=== PATIENT | female | born 1945 | race Caucasian/White ===

== ENCOUNTER → 2019-06-23 09:33 | Outpatient (CLI) | payer MEDICARE, OTHER, SELFPAY ==
[2019-06-23 10:32] LABS: Add Manual Diff / Slide Review NO; Basophils Absolute Auto 0 /uL (0-100); Basophils Percent Auto 0.5 % (0-2); Eosinophils Absolute Auto 500 /uL (0-450); Eosinophils Percent Auto 5.7 % (2-4); Hematocrit 43.1 % (36-46); Hemoglobin 14.7 g/dL (12.0-16.0); Lymphocytes Absolute Auto 2500 /uL (1100-4500); Mean Corpuscular Hemoglobin 31.9 PG (26-34); Mean Corpuscular Volume 93.6 fL (80-100); Monocytes Absolute Auto 600 /uL (0-900); Monocytes Percent Auto 7.1 % (3-14); Neutrophils Absolute Auto 5500 /uL (1500-7000); Neutrophils Percent Auto 59.7 % (50-75); Platelet Count 229 X10^3/uL (150-400); Red Cell Distribution Width 12.5 % (11.6-14.8); White Blood Cell Count 9.2 X10^3/uL (4.5-11.0)
[2019-06-23 10:56] LABS: Carbon Dioxide 25 mmol/L (22-32); Chloride 103 mmol/L (98-107); HEMOLYSIS < 15 (0-50); Sodium 141 mmol/L (137-145)
== END ==
PROVIDERS: PCP Physician Assistant; Visit Provider Orthopaedic Surgery
DX: M17.0 Bilateral primary osteoarthritis of knee (principal); Z01.812 Encounter for preprocedural laboratory examination; Z01.818 Encounter for other preprocedural examination
CPT/HCPCS: 36415; 80051; 85025; 93005

== ENCOUNTER 2019-07-11 10:40 | Observation (INO) | payer MEDICARE, OTHER, SELFPAY ==
[2019-06-29 09:54] VITALS: BMI 26.9
[2019-07-10] VITALS (16 sets, daily range): BP systolic 82–140; BP diastolic 38–75; PULSE 56–82; RESP 11–16; TEMP 35.7–37.1; O2SAT 90–98; BMI 26.9
--- NOTE | 2019-07-10 06:00 | DI.RAD.S_ITS ---
PROCEDURE: XR KNEE RT 1TO2V INDICATIONS: post op films TECHNIQUE: 2 views of the knee were acquired. COMPARISON: [facility] Ethelbobbi Garibay, ALINA, XR KNEE ARTHRITIC SERIES BI, 06/04/2019, 10:02. FINDINGS: Bones: No fractures or dislocations. No suspicious bony lesions. Status post right knee arthroplasty. Hardware components are in expected location. Soft tissues: No joint effusion. No suspicious soft tissue calcifications. IMPRESSION: Expected appearance following the arthroplasty. Dictated by: Ravi Mcnally M.D. on 07/10/2019 at 9:59 Approved by: Ravi Mcnally M.D. on 07/10/2019 at 9:59
[2019-07-10] MEDS: LACTATED RINGERS 1,000 ML 42 ML IV ×2 (07:02→08:40)
[2019-07-10] MEDS: CELECOXIB 200 MG CAPSULE PO (07:06)
[2019-07-10] MEDS: PREGABALIN 75 MG CAPSULE PO (07:06)
[2019-07-10] MEDS: ACETAMINOPHEN 325 MG TABLET 975 MG PO ×3 (07:06→21:24)
--- NOTE | 2019-07-10 07:30 | PM.PREOP ---
Pre-operative Note Interval Note History & Physical reviewed/Exam performed by Physician: Yes Changes to H&P: No
--- NOTE | 2019-07-10 07:30 | PM.OP.1 ---
Operative Date/Time/Diagnoses Date of procedure: 07/10/19 Time of procedure: 09:28 Pre-op diagnosis: Right knee osteoarthritis Post-op diagnosis: same Procedure & Clinicians Procedure: Right total knee arthroplasty Same procedure as scheduled: Yes Indications: The patient presents today for total knee arthroplasty after failure of conservative treatment. The nature of the procedure including the risks and benefits, alternatives, postoperative course and expected outcome were discussed and all questions answered. Consent was obtained. Operative site confirmed and marked. Surgeon: Anup Segovia [employer] Consultant: Jamir Berrios Anesthesia Type: General, Spinal and Local Operative Notes Findings: Severe osteoarthritis with varus alignment. Closure Type: primary Specimen(s): none sent Prosthetic devices, grafts, tissues, transplants, or devices: [employer] BCS: 5 femoral component, 3 tibial component, 9 mm BCS polyethylene tray and 32 x 7.5 mm round patella Applied: implant(s) Estimated Blood Loss (mL): 15 Blood products transfused: none Tourniquet time (min): 56 Procedure in detail: The patient was taken to the operative suite and placed under general and spinal anesthesia. The patient was given prophylactic antibiotics prior to surgery. The patient was also given tranexamic acid, 1 g, just prior to surgery for postoperative hemostasis. The lateral knee was prepped and the joint injected with 20 mL of 1% Lidocaine with epinephrine. The knee was then prepped and draped in usual sterile fashion. The leg was exsanguinated with an Esmarch dressing and the tourniquet raised to 250 torr. A 15 cm anterior incision was made. Next a medial trivector arthrotomy was made. The extensor mechanism was marked to ensure accurate repair. Initial exposing dissection was carried out medially and laterally. The knee was then extended and the patellar thickness was measured and a cut made removing approximately 7-8 mm of bone. The patella was then sized and drilled. Some excess lateral bone was excised and the patellofemoral ligament released. The knee was then flexed and the intramedullary femoral guide enrique placed. The distal femoral cut was made in 6 ? of valgus at the + +2 position. The femoral size was measured and the appropriate cutting block was then placed and the anterior, posterior and chamfer cuts made. The extra medullary tibial alignment enrique was then placed along the anatomic axis of the tibia approximating the normal slope. The guide was set to remove approximately 10 mm from the less affected lateral side. The proximal tibial cut was then made with an oscillating saw. All meniscus and bony debris was then removed. Flexion extension gaps were checked. The knee was still tight medially both in flexion and extension. This was corrected with routine osteophyte and soft tissue releases as well as percutaneous release of the MCL with an 18 gauge needle. The soft tissues were then injected with a combination of 20 mL of half percent Marcaine with epinephrine and 20 mL of Exparel. The trial components were then placed. The knee went into full extension and flexion beyond 120?. There was excellent medial- lateral balance throughout motion. Patellar tracking was excellent. The trial components were removed and the knee was cleansed with Pulsavac irrigation and dried. The final components were cemented in with high viscosity vacuum mixed bone cement with antibiotics. The knee was held in extension and the patellar clamp until the cement had adequately cured. The knee was irrigated and inspected for any further debris. The knee was then irrigated with dilute Betadine solution. The extensor mechanism was closed with 5 interrupted #1 Vicryl sutures in 90 degrees of flexion. The joint was then injected with a combination of 1 g of tranexamic acid and 20 mL of quarter percent Marcaine with epinephrine. The subcutaneous tissue was closed with 2-0 Vicryl. The skin was closed with neno and surgical adhesive. An Aquacell dressing and Cyrus wrap were then applied. The patient tolerated the procedure well and was returned to recovery room in good condition. Post-operative Plan for aftercare: [facility] protocol for total knee arthroplasty.
[2019-07-10] MEDS: CEFAZOLIN 2 GM/100 ML FROZ.PIGGY IV ×2 (07:47→16:17)
[2019-07-10] MEDS: LIDOCAINE 1% W/EPI 20 ML INJ (08:05)
[2019-07-10] MEDS: TRANEXAMIC ACID 1,000 MG VIAL 1000 MG INJ (08:11)
--- NOTE | 2019-07-10 08:24 | SUR.OPER ---
Supine on padded OR bed. Pillow under head, arms secured on padded armboards <90 degree abduction. Safety belt across torso. Non-operative leg secured with tape over blanket over lower leg. Operative leg secured in Marquis positioner. Foam padded brace at thigh of operative leg.
[2019-07-10] MEDS: BUPIVACAINE 0.25% W/ EPI (PF) 40 ML, BUPIVACAINE LIPOSOME 266 MG, SODIUM CHLORIDE 0.9% ... INJ (08:30)
[2019-07-10] MEDS: BUPIVACAINE 0.25% W/ EPI (PF) 20 ML, TRANEXAMIC ACID 1,000 MG, SODIUM CHLORIDE 0.9% 10 ML INJ (08:31)
[2019-07-10] MEDS: SODIUM CHLORIDE IRRIG SOLUTION 250 ML, POVIDONE-IODINE SPONGE STICKS 1 APPLIC IRR (08:33)
--- NOTE | 2019-07-10 13:32 | PC.NURSE ---
Pt admitted to the floor at 1025. She has a aquacel dressing to her r.knee with acewrap intact. States that she has feeling down to the top of her knee. Her feet are starting to tingle as the spinal is possibly wearing off. is at bedside and very supportive in patients care. She denies pain and has LR art 125cc/hr running.
[2019-07-10] MEDS: LACTATED RINGERS 1,000 ML 125 ML IV ×2 (13:36→21:27)
--- NOTE | 2019-07-10 17:33 | PT.IIE ---
Current Diagnoses Bilateral primary osteoarthritis of knee (07/10/19) Impingement syndrome of left shoulder (07/10/19) Surgery Performed Operation Date: 07/10/19 07:45 Actual Procedures p Total Knee Arthroplasty(Right) - Anup Segovia MD Surgical History (Last Updated 06/29/19 @ 10:17 by Ale Ruvalcaba, RN) Hx of tubal ligation (Acute) Medical History (Last Updated 06/29/19 @ 10:19 by Ale Ruvalcaba RN) Diabetes (Acute) HLD (hyperlipidemia) (Acute) HTN (hypertension) (Acute) Hypothyroidism (Acute) Stress (Acute ~07/2014) Physical Therapy Inpatient Evaluation/Re-Eval M1 PT/OT-IP Prior Functional Status Start: 07/10/19 16:44 Freq: NEEDED Status: Active Protocol: Document 07/10/19 16:45 HH (Rec: 07/10/19 17:33 HH [email or web address]) Medical Review Prior Functional Status Medical History Reviewed Yes Diet/Fluid Consistency Regular Communication Able to make needs known and no deficited noted Mobility and Gait Pt was independent for home and community mobility without using AD. Activities of Daily Living and IADL's Independent for ADLs and IADLs . She was her CG for many years since he had cancer and multiple joint replacements. Social History Household Members spouse Living Arrangements House Number of Floors (Floors) Two Floors Number of Stairs To Enter/Railing? Has ramp to enter Home Environment High Toilet,Walk in Shower, Ramp Home Equipment Front Wheel Walker,Straight Cane,Raised Toilet Seat w/ Armrests,Shower Seat with Backrest,Hand Held Shower,Long Handled Shoe Horn,Outreach Counselor Employment Status Retired Additional Social History Comment Pt lives with her who was his CG for the past 5 years due to his cancer and multiple joint replacements. He is now very independent and active and will be able to assist pt as needed. Pt's children both live out of state but she stated she will have helpful neighbor to assist if needed. Pt primarily lives on 2nd floor but will be able to stay on mainfloor in the guest room. M2 PT-IP Current Condition Start: 07/10/19 16:44 Freq: NEEDED Status: Active Protocol: Document 07/10/19 16:45 HH (Rec: 07/10/19 17:33 HH [email or web address]) Physical Therapy Current Condition Current Condition Evaluation Date 07/10/19 Treatment Diagnosis R TKA, difficulty in walking Onset Date 07/10/19 Weight Bearing Status Weight Bearing Status Weight Bear as Tolerated M3 PT-IP Subjective Start: 07/10/19 16:44 Freq: NEEDED Status: Active Protocol: Document 07/10/19 16:45 HH (Rec: 07/10/19 17:33 [email or web address]) Subjective Physical Therapy Visit Type Type Initial Evaluation Visit Start Time 16:45 Visit Stop Time 17:15 Total Visit Minutes 30 Notes Pt's attended session Number of MEDICAL TRANSCRIPTION SUPERVISOR Visits 0 Physical Therapy Visit Comments Patient Comments I only have 2/10 pain. Patient Goals To return home with . Therapy Pain Assessment Pain When Pain Assessed During Mobility Pain Present Pain Present Pain Reported Location R knee Intensity 2 Scale Used Numeric (1 - 10) Description Acute Pain Management Techniques Apply Cold,Modification of Treatment,Timing of Activity with Medications M4 PT-IP Mobility and Gait Start: 07/10/19 16:44 Freq: NEEDED Status: Active Protocol: Document 07/10/19 16:45 HH (Rec: 07/10/19 17:33 [email or web address]) PT-Bed Mobility Assessment Rolling Type of Rolling Roll to Left Level of Assist Standby Assistance Supine to Sit Supine to Sit Standby Assistance Scooting Scooting to Edge of Bed Standby Assistance PT-Transfer Assessment Sit to and From Stand Sit to and from Stand Standby Assistance Equipment Transfer Assistive Device Gait Belt,Front Wheeled Walker Orthotic/Prosthetic Devices or Brace: No Transfers Transfer Destination Bed,Chair,Toilet Transfer Technique Stand Step Pivot Transfer Ability Level of Assist Standby Assistance,Use of Upper Extremities Comments Mobility Comments Pt awake in bed upon assessment. Pt had preop PT and she used her L LE to lift RLE for pivoting to L side EOB . Pt then stood up with FWW but primarily WB through LLE. She then performed standing weight shift laterally without discomfort. She was able to transfer herself to toilet with the use of grab on L side and safely descend without stagger stance. She then amb from bathroom to hallway. She mostly used step to pattern but able to WB 70-80% on RLE without any buckling episodes. Pt then transferred back to bedside chair with safe techniques and hand placements . Pt appears very steady and safe during session. Gait Assessment Gait Gait Assistance Required: Standby Assistance Distance (Feet) 90 Able to Maintain Weight Bearing Status Yes During Gait Assistive Devices Assistive Device Gait Belt,Front Wheeled Walker Orthotic/Prosthetic Devices or Brace: No Gait Deviations General Gait Pattern Antalgic,Decreased Stride Length,Decreased Feet Clearance,Step-to Gait Factors Limiting Gait Function Factors Limiting Gait Function Decreased Activity Tolerance, Decreased Strength,Limited Range of Motion,Pain,Poor Balance Comments Gait Comments see mobility comments PT-Balance Assessment Sitting Balance and Reactions Static Sitting Balance Ability Normal Dynamic Sitting Balance Ability Normal Standing Balance and Reactions Static Standing Balance Ability Normal Dynamic Standing Balance Ability Normal Device Used FWW M5 PT-IP Objective Assessments Start: 07/10/19 16:44 Freq: NEEDED Status: Active Protocol: Document 07/10/19 16:45 (Rec: 07/10/19 17:33 [email or web address]) Orientation Orientation/Cognition Level of Alertness Alert Orientation Name,Age,Birthday,Month,Date, Year,Day of Week,Place, Situation Language Function Ability No Deficits Noted Safety Awareness Understands Safety Issues Memory Description No Deficits Noted Gross Range of Motion Upper Extremity ROM Assessment Within Functional Limits Lower Extremity ROM Assessment Right Impaired Impairments R knee AROM= 3- 110 degrees. Strength Upper Extremity Strength Assessment Within Functional Limits Lower Extremity Strength Assessment Right Impaired Knee 3+/5 Coordination Assessment Gross Coordination Gross Coordination WNL Sensation Assessment Sensation Gross Sensation WNL Light Touch Intact Proprioception (Position) Intact Muscle Tone Muscle Tone WNL Yes M6 PT-IP Treatment Start: 07/10/19 16:44 Freq: NEEDED Status: Active Protocol: Document 07/10/19 16:45 HH (Rec: 07/10/19 17:33 [email or web address]) Physical Therapy Treatment Exercises Exercises Ankle Pumps,Gluteal Sets,Quad Sets,Heel Slides Education Education Provided Precautions,Weight Bearing Status,Post-Op Packet,Safety M7 PT-IP Assessment and Plan Start: 07/10/19 16:44 Freq: NEEDED Status: Active Protocol: Document 07/10/19 16:45 (Rec: 07/10/19 17:33 [email or web address]) PT Summary Assessment and Plan Potential Rehabilitation Potential Excellent Status of Condition at Evaluation Stable Summary Impairments Pain,ROM,Strength,Bed Mobility ,Transfers,Gait,Activity Tolerance Assessment Summary Pt is a low complexity who is post op R TKA today. Upon assessment, pt has a very good understanding of her current condition and safety awareness who had taken care of her with multiple joint replacements. She was able transfer, amb with FWW SBA during session and appears very steady and safe. Pt also lives in a house with adequate DMEs. Expect pt to be d/c home with 's assistance and outpatient PT to improve her mobility and strength. Goals Bed Mobility Goal Independent Transfer Goal Independent,Front Wheeled Walker Gait Goal Independent,Front Wheel Walker Gait Distance 200 Other Goals Stair climbing as magi ( optional) pt has a ramp to enter Days to Meet Goals 3 Frequency of Treatment Frequency Of Treatment Twice a Day Treatment Plan Physical Therapy Treatment Plan Bed Mobility Training,Transfer Training,Gait Training, Therapeutic Exercise,Balance Retraining,Post Op Education, Discharge Planning,Hot or Cold Pack,Neuromuscular Re-ed Other Recommendations and Next Treatment bed mob, transfers and gait Focus training as magi stair climbing as magi ( optional) Recommendations To Nursing Amount of Assist Needed Standby Assistance Discharge Recommendations PT Discharge Recommendations Home with Assistance, Outpatient PT
[2019-07-10] MEDS: LOVASTATIN 20 MG TABLET PO (18:06)
[2019-07-10] MEDS: METFORMIN HCL 500 MG TABLET PO (21:23)
[2019-07-10] MEDS: ASPIRIN EC 81 MG TABLET PO (21:23)
[2019-07-11] VITALS: BP 123/66; PULSE 59; RESP 16; TEMP 36.4; O2SAT 95
[2019-07-11] MEDS: CEFAZOLIN 2 GM/100 ML FROZ.PIGGY IV (00:19)
[2019-07-11 04:00] VITALS: BP 151/56; PULSE 66; RESP 16; TEMP 36.3; O2SAT 97
[2019-07-11 05:50] LABS: Hematocrit 39.7 % (36-46)
[2019-07-11] MEDS: LEVOTHYROXINE 25 MCG TABLET PO (06:03)
[2019-07-11 08:02] VITALS: BP 123/67; PULSE 71; RESP 16; TEMP 36.2; O2SAT 95
[2019-07-11] MEDS: METFORMIN HCL 500 MG TABLET PO (08:58)
[2019-07-11] MEDS: ASPIRIN EC 81 MG TABLET PO (08:58)
[2019-07-11] MEDS: AMLODIPINE 5 MG TABLET PO (08:58)
[2019-07-11] MEDS: ACETAMINOPHEN 325 MG TABLET 975 MG PO (08:59)
--- NOTE | 2019-07-11 09:52 | PM.DS.1 ---
History of Present Illness History of Present Illness Date Patient Seen: 07/11/19 Time Patient Seen: 09:52 Chief complaint: [id number] Narrative: Patient's pain is mild. Denies fever chills. No nausea vomiting. Patient has her home to assist her. They have a ramp into her house. She does wish to go home today if safe to do so. She is otherwise without complaints. Discharge Providers Provider Date of admission: 07/10/19 05:25 Discharge Date: 07/11/19 Primary care physician: Tamie Chin PA-C Consults: 07/10/19 11:49 Consult to Discharge Planning Routine Comment: Consult to Physical Therapy Evaluate & Treat Comment: Physician Instructions: postop TKA protocol Consult to Respiratory Therapy Evaluate & Treat Comment: Physician Instructions: Evaluate and treat Discharge provider: Jamir Berrios PA-C Summary Hospital Course Discharge Diagnosis: Status post right total knee arthroplasty secondary to severe right knee osteoarthritis Hospital Course: [address] [address] Operative Note Patient: Beatris Yoon R#: [id number] : 3Acct:[id number] Age/Sex: 74 / F Date of Service: 07/10/19 Provider: Anup Segovia MD Operative Date/Time/Diagnoses Date of procedure: 07/10/19 Time of procedure: 09:28 Pre-op diagnosis: Right knee osteoarthritis Post-op diagnosis: same Procedure & Clinicians Procedure: Right total knee arthroplasty Same procedure as scheduled: Yes Indications: The patient presents today for total knee arthroplasty after failure of conservative treatment. The nature of the procedure including the risks and benefits, alternatives, postoperative course and expected outcome were discussed and all questions answered. Consent was obtained. Operative site confirmed and marked. Surgeon: Anup Segovia Welcome Wagon Host/Hostess: Jamir Berrios Anesthesia Type: General, Spinal and Local Operative Notes Findings: Severe osteoarthritis with varus alignment. Closure Type: primary Specimen(s): none sent Prosthetic devices, grafts, tissues, transplants, or devices: [employer] BCS: 5 femoral component, 3 tibial component, 9 mm BCS polyethylene tray and 32 x 7.5 mm round patella Applied: implant(s) Estimated Blood Loss (mL): 15 Blood products transfused: none Tourniquet time (min): 56 Patient admitted to the hospital for right total knee arthroplasty. Patient taken to the operating room underwent right total knee arthroplasty. Patient back in her room recovering well as in stable condition. Patient will work with physical therapy prior to discharge home today. Status at Discharge Cognitive/behavioral status at discharge: at baseline, oriented Functional status at discharge: uses cane/walker Overall status at discharge: patient is progressing back to baseline Time Spent with Patient Time spent: Less than 30 minutes Exam Vital Signs (past 8 hours): - 07/11/19 04:00 07/11/19 08:02 Temperature 97.4 F L 97.1 F L Pulse Rate 66 71 Respiratory Rate 16 16 Blood Pressure 151/56 H 123/67 Pulse Oximetry 97 95 Oxygen Delivery Method Room Air Oxygen Flow Rate 0 Narrative Exam Narrative: Pleasant 74-year-old female resting comfortably in bedside chair in no apparent distress. Right knee dressing is clean, dry and intact. Sensation grossly intact to light touch right lower extremity. Motor functions intact. Right leg is warm and dry. Objective Labs Result Diagrams: 07/11/19 05:34 Labs: Laboratory Results - last 24 hr 07/11/19 05:34 Hgb 13.0 Hct 39.7 Discharge Plan Discharge Plan Patient Disposition: Home Discharge comment: DC today after PT Discharge Med Rec/Prescriptions Prescriptions: New aspirin 81 mg Tablet,Delayed Release (Dr/Ec) 81 mg PO BID Qty: 60 RF: 0 ibuprofen 400 mg Tablet 400 mg PO Q4HR PRN (Reason: Pain, Mild (1-3)) Qty: 60 RF: 0 Continued lisinopril 20 mg Tablet 20 mg PO QPM RF: 0 amlodipine 5 mg Tablet 5 mg PO DAILY RF: 0 ferrous sulfate [iron] 325 mg (65 mg iron) Tablet 325 mg PO DAILY RF: 0 metformin 1,000 mg Tablet 500 mg PO BID RF: 0 lovastatin 20 mg Tablet 20 mg PO QPM RF: 0 levothyroxine 25 mcg Capsule 25 mcg PO DAILY RF: 0 Multi-Day with Iron 18-400 mg-mcg Tablet 1 tab PO DAILY RF: 0 Discontinued aspirin 81 mg Tablet,Delayed Release (Dr/Ec) 81 mg PO QPM RF: 0 meloxicam 7.5 mg Tablet 7.5 mg PO BID RF: 0 Follow up/Referrals: Anup Segovia MD [Physician] - (1 wk) Tamie Chin PA-C [Primary Care Provider] - Provider Discharge Instructions Diet: Diet as Tolerated Activity: per zay Cold/Heat Therapy: ice as needed Other treatments: Ibuprofen 400 mg every 4 hours., Tylenol 500 mg every 4 hours, aspirin 81 mg b.i.d.., oxycodone as prescribed. Skin/Wound/Dressing Care Report to your healthcare provider any signs of infection, such as:: chills, fever, increased pain, unusual drainage and unusual redness Dressing: keep clean and dry Discharge Data Primary Care Provider: Tamie Chin VTE Deep Vein Thrombosis/Pulmonary Embolism Present on Admission: No
--- NOTE | 2019-07-11 10:45 | PT.IPTN ---
Current Diagnoses Bilateral primary osteoarthritis of knee (07/10/19) Impingement syndrome of left shoulder (07/10/19) Surgery Performed Operation Date: 07/10/19 07:45 Actual Procedures p Total Knee Arthroplasty(Right) - Anup Segovia MD Physical Therapy Treatment Note M2 PT-IP Current Condition Start: 07/10/19 16:44 Freq: NEEDED Status: Active Protocol: Document 07/10/19 16:45 HH (Rec: 07/10/19 17:33 HH [email or web address]) Physical Therapy Current Condition Current Condition Evaluation Date 07/10/19 Treatment Diagnosis R TKA, difficulty in walking Onset Date 07/10/19 Weight Bearing Status Weight Bearing Status Weight Bear as Tolerated M3 PT-IP Subjective Start: 07/10/19 16:44 Freq: NEEDED Status: Active Protocol: Document 07/11/19 10:45 GGD (Rec: 07/11/19 12:48 GGD [id number]) Subjective Physical Therapy Visit Type Type Treatment Note Visit Start Time 10:15 Visit Stop Time 11:43 Total Visit Minutes 23 Number of BOBBIN DISKER Visits 1 Physical Therapy Visit Comments Patient Comments Pt state she feels ready to go home. Therapy Pain Assessment Pain When Pain Assessed During Mobility Pain Present Pain Present Pain Reported Location R knee Intensity 2 Scale Used Numeric (1 - 10) M4 PT-IP Mobility and Gait Start: 07/10/19 16:44 Freq: NEEDED Status: Active Protocol: Document 07/11/19 10:45 GGD (Rec: 07/11/19 12:48 GGD [id number]) PT-Bed Mobility Assessment Rolling Type of Rolling Roll to Left Level of Assist Standby Assistance Supine to Sit Supine to Sit Standby Assistance Sit to Supine Sit to Supine Standby Assistance Scooting Scooting to Edge of Bed Standby Assistance PT-Transfer Assessment Sit to and From Stand Sit to and from Stand Standby Assistance Equipment Transfer Assistive Device Gait Belt,Front Wheeled Walker Orthotic/Prosthetic Devices or Brace: No Transfers Transfer Destination Bed Transfer Ability Level of Assist Standby Assistance,Use of Upper Extremities Gait Assessment Gait Gait Assistance Required: Standby Assistance Distance (Feet) 150 Able to Maintain Weight Bearing Status Yes During Gait Assistive Devices Assistive Device Gait Belt,Front Wheeled Walker Orthotic/Prosthetic Devices or Brace: No Gait Deviations General Gait Pattern Antalgic,Decreased Stride Length,Decreased Feet Clearance,Step-to Gait Factors Limiting Gait Function Factors Limiting Gait Function Decreased Activity Tolerance, Decreased Strength,Limited Range of Motion,Pain,Poor Balance M5 PT-IP Objective Assessments Start: 07/10/19 16:44 Freq: NEEDED Status: Active Protocol: Document 07/10/19 16:45 HH (Rec: 07/10/19 17:33 HH [email or web address]) Orientation Orientation/Cognition Level of Alertness Alert Orientation Name,Age,Birthday,Month,Date, Year,Day of Week,Place, Situation Language Function Ability No Deficits Noted Safety Awareness Understands Safety Issues Memory Description No Deficits Noted Gross Range of Motion Upper Extremity ROM Assessment Within Functional Limits Lower Extremity ROM Assessment Right Impaired Impairments R knee AROM= 3- 110 degrees. Strength Upper Extremity Strength Assessment Within Functional Limits Lower Extremity Strength Assessment Right Impaired Knee 3+/5 Coordination Assessment Gross Coordination Gross Coordination WNL Sensation Assessment Sensation Gross Sensation WNL Light Touch Intact Proprioception (Position) Intact Muscle Tone Muscle Tone WNL Yes M6 PT-IP Treatment Start: 07/10/19 16:44 Freq: NEEDED Status: Active Protocol: Document 07/11/19 10:45 GGD (Rec: 07/11/19 12:48 GGD [id number]) Physical Therapy Treatment Exercises Exercises Ankle Pumps,Gluteal Sets,Quad Sets,Heel Slides,Short Arc Quads,Seated Knee Flexion/ Extension Education Education Provided Precautions,Safety M7 PT-IP Assessment and Plan Start: 07/10/19 16:44 Freq: NEEDED Status: Active Protocol: Document 07/11/19 10:45 GGD (Rec: 07/11/19 12:48 GGD [id number]) PT Summary Assessment and Plan Summary Assessment Summary Pt improving with mobility. She was able to progress gait distance. Pt safe for home D/C when medically stable. Frequency of Treatment Frequency Of Treatment Twice a Day Treatment Plan Physical Therapy Treatment Plan Bed Mobility Training,Transfer Training,Gait Training, Therapeutic Exercise,Balance Retraining,Post Op Education, Discharge Planning,Hot or Cold Pack,Neuromuscular Re-ed Recommendations To Nursing Amount of Assist Needed Standby Assistance Discharge Recommendations PT Discharge Recommendations Home with Assistance, Outpatient PT
[2019-07-11 11:24] VITALS: BP 121/58; PULSE 72; RESP 18; TEMP 36.7; O2SAT 96
--- NOTE | 2019-07-11 14:57 | CM.DANOTE ---
DCP/Assessment: Reviewed chart. Patient is a 74yr old female admitted to [facility] for elective right TKA performed on 07-10-[address] Segovia. PCP listed is Tamie Chin. Primary payor is 1)Medicare 2)Commercial Insurance. Attempted to meet with patient this afternoon. Patient had already discharged from [facility] Patient seen by Ortho team and therapy. Both report patient medically cleared and physically cleared for discharge home. Patient has FWW for ambulation and plans to do outpatient therapy. RN reports no d/c needs identified. P: Home today. NANETTE Tucker Discharge Planning/Care Management CM Discharge Assessment Start: 07/11/19 14:54 Freq: Status: Active Protocol: Document 07/11/19 14:54 KJS (Rec: 07/11/19 14:57 KJS [id number]) Discharge Planning Assessment Assigned Sql Ssrs Developer NANETTE Tucker Contact Information Herb Yoon (spouse) [phone] Advance Directives? Yes Advance Directives on File Yes History Provided By Medical Record Has Patient been admitted in last 30 No days? Prior Living Arrangements House Household Members spouse Independent with ADL's Yes Is patient alert and oriented? Yes Caregiver for Another No DME Already Rented / Owned FWW / Walker Patient/Family Preference OP PT Therapy Barriers to Discharge No Discharge Plan Home Transportation Arrangement Family to provide transport. Referrals Initiated None needed Review Status In Process Next Review Type Continued Stay Review Pre-Anesthesia Assessment Start: 06/29/19 09:54 Freq: Status: Discharge Protocol: Document 06/29/19 09:54 CAB (Rec: 06/29/19 10:37 CAB [id number]) Pre-Anesthesia Assessment Patient Information Reviewed Via Phone Assessment Assessment Completed With Patient Diagnostic Results CBC,EKG,Electrolytes Comment Labs/EKG @ 06/23/19 Primary Care Provider Tamie Chin Seen Specialist in Last 12 Months Yes Specialist Seen Orthopedist Primary Language [place] Vascular Surgeon Required No Height 162.56 cm Weight 71.214 kg Body Mass Index (BMI) 26.9 Hearing Ability Normal Visual Assist Glasses Dentition Type Teeth, Natural Present Barriers to Learning None Other Aids No Hx Anesthesia Reactions No Hx Family Anesthesia Reaction No Hx Malignant Hyperthermia No Hx Blood Transfusions No Anesthesia Review Requested No alcohol intake former Smoking Status Never smoker Substance Use Type does not use Pain Present Pain Reported Musculoskeletal Symptoms Abnormal Gait,Difficulty Walking,Joint Pain History of Falling (Recent or History of No ) Patient is completely paralyzed or No completely immobile Mental Status Oriented to own ability Is patient on oxygen? No Does patient have MORALES/SOB No Hx Sleep Apnea No Currently Taking a Beta Arin No Can You Climb a Flight of Stairs Without Yes SOB Hx Chest Pain No Hx SOB No Hx Syncope or Dizziness No Anti-Coagulant Therapy No Has a In Store Marketer No Cardiac Testing No Hx Pacemaker/ICD No Pacemaker Rep Required? No Cardiac Clearance Received Not Applicable Diet Type At Home Regular dysphagia No Bladder Pattern Nocturia Urinary Catheter Present No Hx Urinary Self Catheterization No Diabetes Yes Patient No Lactating No Hx Drug Resistant Organism No Presence of External or Internal Medical No Devices Have you traveled outside the [facility] in the last 30 days? Marital Status Lives With spouse Prior Living Arrangements House Number of Floors (Floors) Two Floors Support System Friend(s),Spouse Does the Patient Have Assistance After Yes Surgery Patient Discharge Plan Description Return Home Comment Pt not advised on length of stay per surgeon Feels Safe in Current Environment Yes Been Physically Hurt or Threatened By a No Person in Current Environment Do you have thoughts of harming yourself None or others? Are you currently considering suicide? No Do you have a plan to hurt yourself or No Plan others? Do You Have Any Spiritual Beliefs That No May Affect Your HC Choices? Do You Have Any Cultural Practices That No May Affect Your HC Choices? Who Can We Speak to About Patient's Care Family, friends Identifying Code for Release of Patient Declines to issue Information Health Care Proxy/Next of Kin Herb () Health Care Proxy Emergency Contact Name Justo (son) Nico (son) Emergency Contact Phone Number Justo: [phone] Nico: [phone] Advance Directives? Yes Advance Directives on File No Requested Patient Bring Advanced Yes Directives DOS Power of Landscape Gardener Yes Power of Landscape Gardener Name Herb () PAC Instructions Do not shave/clip surgical site,Durable medical equipment ,Medications to take/avoid, Nasal antibiotic,No ETOH/ petroleum product on skin DOS, NPO,Post-op transportation,Pre -surgical wash,Sensory aids, Sturdy shoes/comfortable clothes,Do not bring valuables and remove jewelry
== END 2019-07-11 13:20 | disposition home or self-care (01) ==
LOC: AC 12:16 → OR 14:28 → AC 14:29 → OR 14:30
PROVIDERS: Admitting Provider Orthopaedic Surgery; PCP Physician Assistant; Visit Provider Orthopaedic Surgery
PROC: 0SRC0JZ Replacement of Right Knee Joint with Synthetic Substitute, Open Approach (ICD-10-PCS; CPT 27447; principal; 2019-07-10 07:45)
DX: M17.11 Unilateral primary osteoarthritis, right knee (principal); I10 Essential (primary) hypertension; E11.9 Type 2 diabetes mellitus without complications; Z79.84 Long term (current) use of oral hypoglycemic drugs
CPT/HCPCS: 27447; 36415; 73560; 82962; 85014; 85018; 97110; 97116; 97161; C1776; G0378; C9290; J0690; J1100; J2250; J2274; J2405; J2704; J3010